=== PATIENT | male | born 1950 | race Caucasian/White ===

== ENCOUNTER → 2019-12-29 | Outpatient (CLI) | payer OTHER ==
--- NOTE | 2019-12-29 11:18 | 2DMMODE ---
[facility] [place] [address] 2 D/M-MODE ECHOCARDIOGRAM Name: LIZETH PIRES Room #: REG [facility]#: [id number] Admission: 12/29/19 Attend Phys: Sukhwinder Astorga MD Discharge: Date of : 46 Report #: [id number] THIS REPORT FOR: cc: Fabien Moyer MD, Bruce H. MD Santiago, Patrick MD [facility] ~ APPROVED REPORT Study performed: 12/29/2019 10:23:15 EXAM: Comprehensive 2D, Doppler, and color-flow Echocardiogram Patient Location: Out-Patient Status: routine BSA: 2.07 HR: 64 bpm BP: 110/64 mmHg Rhythm: NSR Other Information Study Quality: Good Indications CAD. Hx: CABG 2D Dimensions RVDd: 39.55 mm IVSd: 15.00 (7-11mm) LVOT Diam: 23.00 (18-24mm) LVDd: 45.00 mm PWd: 9.00 (7-11mm) Ascending Ao: 39.00 (22-36mm) LVDs: 32.18 (25-40mm) Aortic Root: 44.00 mm Volumes Left Atrial Volume (Systole) Single Plane 4CH: 63.93 mL Single Plane 2CH: 51.07 mL LA ESV Index: 29.00 mL/m2 Aortic Valve AoV Peak Kelvin.: 1.30 m/s AO Peak Gr.: 6.77 mmHg LVOT Max P.83 mmHg LVOT Max V: 0.84 m/s DREAD Vmax: 2.78 cm2 [facility] [address] [place] [address] 2 D/M-MODE ECHOCARDIOGRAM Name: LIZETH PIRES Room #: REG [facility]#: [id number] Admission: 12/29/19 Attend Phys: Sukhwinder Astorga MD Discharge: Date of : 46 Report #: [id number] Mitral Valve E/A Ratio: 0.7 MV Decel. Time: 188.62 ms MV E Max Kelvin.: 0.64 m/s MV A Kelvin.: 0.88 m/s MV PHT: 54.70 ms IVRT: 96.89 ms Pulmonary Valve PV Peak Kelvin.: 0.93 m/s PV Peak Gr.: 3.46 mmHg Pulmonary Vein P Vein S: 0.62 m/s P Vein A: 0.36 m/s P Vein D: 0.27 m/s P Vein A Dur.: 129.2 msec P Vein S/D Ratio: 2.30 Tricuspid Valve RAP Estimate: 5.00 mmHg Left Ventricle The left ventricle is normal size. Moderate basal septal hypertrophy is present. Left ventricular systolic function is normal. LVEF is 65%. Mild diastolic dysfunction is present (impaired relaxation pattern). Right Ventricle The right ventricle is normal size. The right ventricular systolic function is normal. Atria The left atrium size is normal. The right atrium size is normal. Aortic Valve The aortic valve is normal in structure; mildly thickened. Mild to moderate aortic regurgitation. There is no aortic valvular stenosis. Mitral Valve The mitral valve is normal in structure. Trace mitral regurgitation. No evidence of mitral valve stenosis. Tricuspid Valve The tricuspid valve is normal in structure. There is no tricuspid valve regurgitation noted. Unable to assess PA pressure. [facility] [address] [place] [address] 2 D/M-MODE ECHOCARDIOGRAM Name: LIZETH PIRES Room #: REG [facility]#: [id number] Admission: 12/29/19 Attend Phys: Sukhwinder Astorga MD Discharge: Date of : 46 Report #: [id number] Pulmonic Valve The pulmonary valve is normal in structure. Mild pulmonic regurgitation. Great Vessels Aortic root is dilated (4.4cm). The ascending aorta is mildly dilated. IVC is normal in size and collapses >50% with inspiration. Pericardium There is no pericardial effusion. <Conclusion> Normal left atrial size, moderate septal hypertrophy, ejection fraction of 65% Mild diastolic dysfunction Mild to moderate aortic valve insufficiency with mild aortic valve calcification Normal right ventricular size and function Aortic root estimated at 4.4 cm, mildly dilated Trace of mitral valve insufficiency No evidence of tricuspid valve insufficiency No pericardial effusion <ELECTRONICALLY SIGNED> By: Jignesh Adame MD, FACC 12/29/19 1118 17 17 Jignesh Adame MD, [facility] /INF
== END ==
LOC: CV 10:13
PROVIDERS: ATTEND Orthopaedic Surgery
DX: I08.8 Other rheumatic multiple valve diseases (principal); I25.10 Atherosclerotic heart disease of native coronary artery without angina pectoris